=== PATIENT | male | born 1980 | race Caucasian/White ===

== ENCOUNTER 2017-08-17 11:31 | Emergency (ER) | payer MEDICAID, MEDICARE ==
[~2017-08-17] VITALS: Ht 172.7 cm; Wt 60.0 kg
[~2017-08-17 11:31] MED LIST: ALBU8I INH; BENZ100 PO; DEPRESSION MEDS; ZITH250T PO
[2017-08-17 12:01] VITALS: BP 113/76; PULSE 62; RESP 15; TEMP 98.3; O2SAT 99
[2017-08-17 13:00] LABS: AUTOMATED NEUTROPHIL # 2.7 TH/MM3 (1.8-7.7); BASOPHIL % 0.5 % (0.0-2.0); HEMATOCRIT 42.7 % (39.0-51.0); HEMOGLOBIN 14.4 GM/DL (13.0-17.0); LYMPH % 25.1 % (9.0-44.0); MEAN CELL VOLUME 86.8 FL (80.0-100.0); MEAN CORPUSCULAR HEMOGLOBIN 29.3 PG (27.0-34.0); MEAN CORPUSCULAR HGB CONC 33.7 % (32.0-36.0); MEAN PLATELET VOLUME 8.4 FL (7.0-11.0); MONO % 6.6 % (0.0-8.0); MONOCYTE # 0.3 TH/MM3 (0-0.9); NEUT % 66.8 % (16.0-70.0); PLATELET COUNT 170 TH/MM3 (150-450); RED BLOOD COUNT 4.92 MIL/MM3 (4.50-5.90); RED CELL DISTRIBUTION WIDTH 14.1 % (11.6-17.2)
--- NOTE | 2017-08-17 13:01 | PD ---
HPI Chief Complaint: Abdominal Pain Time Seen by Provider: 12:30 Travel History International Travel<30 days: No Contact w/Intl Traveler<30days: No Traveled to known affect area: No History of Present Illness HPI 37-year-old male the presents to the ED for evaluation of left upper quadrant abdominal pain. Patient has had this abdominal pain for the past 2-3 days. Patient is a little bit of a poor historian secondary to a suspect his psychiatric illness as he does take multiple psychiatric medications. He apparently lives in a half[place]way and was brought here for evaluation of this pain that he has had on his left side. He points to his left rib cage. No really to his abdomen. When asked if he injury in any way he does tell me that he was working and he bumped into something. Per patient has been having the pain ever since. He states that the pain is moderate. Nothing makes it better or worse. Denies any shortness of breath or chest pain with it. No nausea or vomiting. No bowel movements or diarrhea issues. Unclear if he is taken anything for it. Does not radiate. Patient pinpoints to the lower rib of the left side as the area of most of the pain. PFSH Past Medical History Asthma: No Autoimmune Disease: No COPD: No Respiratory: No Sleep Apnea: No Social History Alcohol Use: Yes Tobacco Use: Yes Substance Use: No Allergies-Medications (Allergen,Severity, Reaction): Coded Allergies: No Known Allergies (Verified Adverse Reaction, Unknown, 08/17/17) Reported Meds & Prescriptions Reported Meds & Active Scripts Active Diclofenac Sodium DR (Diclofenac Sodium) 75 Mg Tabdr 75 Mg PO BID PRN Reported Prazosin (Prazosin HCl) 2 Mg Cap 2 Mg PO BID Lamotrigine 150 Mg Tab 150 Mg PO DAILY Hydroxyzine Pamoate 50 Mg Cap 50 Mg PO BID Haloperidol 2 Mg Tab 2 Mg PO BID Buspirone (Buspirone HCl) 30 Mg Tab 30 Mg PO TID Benztropine (Benztropine Mesylate) 0.5 Mg Tab 1 Mg PO BID Aripiprazole 5 Mg Tab 5 Mg PO DAILY Review of Systems Except as stated in HPI: all other systems reviewed are Neg Physical Exam Narrative GENERAL: SKIN: Warm and dry. HEAD: Atraumatic. Normocephalic. EYES: Pupils equal and round. No scleral icterus. No injection or drainage. ENT: No nasal bleeding or discharge. Mucous membranes pink and moist. Tongue is midline. No uvula deviation. NECK: Trachea midline. No JVD. CARDIOVASCULAR: Regular rate and rhythm. No murmurs, S3, S4. RESPIRATORY: No accessory muscle use. Clear to auscultation. Breath sounds equal bilaterally. GASTROINTESTINAL: Abdomen soft, non-tender, nondistended. Hepatic and splenic margins not palpable. MUSCULOSKELETAL: Extremities without clubbing, cyanosis, or edema. No obvious deformities. Full range of motion of the upper and lower extremities bilaterally. 2+ pulses bilaterally. Patient has pinpoint tenderness on the left lower rib cage. NEUROLOGICAL: Awake and alert. No obvious cranial nerve deficits. Motor grossly within normal limits. Five out of 5 muscle strength in the arms and legs. Normal speech. PSYCHIATRIC: Appropriate mood and affect; insight and judgment normal. Data Data Last Documented VS Vital Signs Date Time Temp Pulse Resp B/P (MAP) Pulse Ox O2 Delivery O2 Flow Rate FiO2 08/17/17 14:21 16 08/17/17 13:58 98.0 50 114/70 (85) 100 Room Air Orders Orders Complete Blood Count With Diff (08/17/17 12:03) Comprehensive Metabolic Panel (08/17/17 12:03) Urinalysis - C+S If Indicated (08/17/17 12:03) Lipase (08/17/17 12:03) Electrocardiogram (08/17/17 12:32) Ckmb (Isoenzyme) Profile (08/17/17 12:32) Troponin I (08/17/17 12:32) Ribs, Uni (W/Exp Cxr-Min 3vw) (08/17/17 ) Ketorolac Inj (Toradol Inj) (08/17/17 13:30) Labs Laboratory Tests Test 08/17/17 12:48 08/17/17 14:00 White Blood Count 4.0 TH/MM3 Red Blood Count 4.92 MIL/MM3 Hemoglobin 14.4 GM/DL Hematocrit 42.7 % Mean Corpuscular Volume 86.8 FL Mean Corpuscular Hemoglobin 29.3 PG Mean Corpuscular Hemoglobin Concent 33.7 % Red Cell Distribution Width 14.1 % Platelet Count 170 TH/MM3 Mean Platelet Volume 8.4 FL Neutrophils (%) (Auto) 66.8 % Lymphocytes (%) (Auto) 25.1 % Monocytes (%) (Auto) 6.6 % Eosinophils (%) (Auto) 1.0 % Basophils (%) (Auto) 0.5 % Neutrophils # (Auto) 2.7 TH/MM3 Lymphocytes # (Auto) 1.0 TH/MM3 Monocytes # (Auto) 0.3 TH/MM3 Eosinophils # (Auto) 0.0 TH/MM3 Basophils # (Auto) 0.0 TH/MM3 CBC Comment DIFF FINAL Differential Comment Blood Urea Nitrogen 8 MG/DL Creatinine 0.89 MG/DL Random Glucose 84 MG/DL Total Protein 7.0 GM/DL Albumin 3.8 GM/DL Calcium Level 8.8 MG/DL Alkaline Phosphatase 113 U/L Aspartate Amino Transf (AST/SGOT) 12 U/L Alanine Aminotransferase (ALT/SGPT) 17 U/L Total Bilirubin 0.2 MG/DL Sodium Level 142 MEQ/L Potassium Level 3.8 MEQ/L Chloride Level 105 MEQ/L Carbon Dioxide Level 33.6 MEQ/L Anion Gap 3 MEQ/L Estimat Glomerular Filtration Rate 95 ML/MIN Total Creatine Kinase 72 U/L Troponin I LESS THAN 0.02 NG/ML Lipase 92 U/L Urine Color LIGHT-YELLOW Urine Turbidity CLEAR Urine pH 6.0 Urine Specific [place] 1.002 Urine Protein NEG mg/dL Urine Glucose (UA) NEG mg/dL Urine Ketones NEG mg/dL Urine Occult Blood NEG Urine Nitrite NEG Urine Bilirubin NEG Urine Urobilinogen LESS THAN 2.0 MG/DL Urine Leukocyte Esterase NEG Urine WBC LESS THAN 1 /hpf Microscopic Urinalysis Comment CULT NOT INDICATED MDM Medical Decision Making Medical Screen Exam Complete: Yes Emergency Medical Condition: Yes Medical Record Reviewed: Yes Interpretation(s) CBC & BMP Diagram 08/17/17 12:48 Total Protein 7.0, Albumin 3.8, Calcium Level 8.8, Alkaline Phosphatase 113, Aspartate Amino Transf (AST/SGOT) 12 L, Alanine Aminotransferase (ALT/SGPT) 17, Total Bilirubin 0.2 Last Impressions Ribs X-Ray 08/17/17 0000 Signed Impressions: CONCLUSION: xray of ribs showed no sign of acute disease per radiology report troponin and CKMB negative lipase WNL UA negative for blood or signs of infection EKG show sinus bradycardia but no sign of acute ischemia or arrhythmia read by me and attending. Differential Diagnosis Abdominal pain versus chest pain versus rib contusion versus pancreatitis versus gallbladder disease Narrative Course 37-year-old male that presents to the ED for evaluation of left site pain. Patient was properly examined and was found to have signs and symptoms which appeared to be consistent with likely contusion of the ribs. Patient has pinpoint tenderness to the lower ribs on the left side and no bruising or swelling noted. No obvious abdominal pain noted. We will do basic labs and EKG and chest x-ray to rule out any sign of acute disease secondary to patient being a poor historian to rule out more severe illness. Labs and imaging were essentially unremarkable. Patient has reversible pain on the left rib cage. Likely contusion. Patient was given a prescription for the cough and accident. Patient was given Toradol with some relief of discomfort. Follow-up closely with PCP. See ED if worsening symptoms. Diagnosis Primary Impression: Contusion of rib on left side Qualified Codes: S20.212A - Contusion of left front wall of thorax, initial encounter Patient Instructions: General Instructions Additional Instructions: Take medication for pain as prescribed. Follow-up with PCP. See ED worsening symptoms. Ice or warm compresses to the area as needed. Pain will likely last a couple of weeks and then it will get better. Anything gets worse come back. Med/Other Pt SpecificInfo: Prescription(s) given Scripts Diclofenac Sodium (Diclofenac Sodium DR) 75 Mg Tabdr 75 MG PO BID Y for PAIN SCALE 1 TO 10, #14 TAB 0 Refills Prov: Yoko Conde MD 08/17/17 Disposition: 01 DISCHARGE HOME Condition: Stable Vipul Atwood August 17, 2017 13:01
[2017-08-17] MEDS ORDERED: BENZ0.5T PO (13:04)
[2017-08-17] MEDS ORDERED: LAMO150T PO (13:04)
[2017-08-17] MEDS ORDERED: HYDR50CA PO (13:04)
[2017-08-17] MEDS ORDERED: ARIP1TAB11 PO (13:04)
[2017-08-17] MEDS ORDERED: PRAZ2CAP PO (13:04)
[2017-08-17] MEDS ORDERED: HALO2TAB PO (13:04)
[2017-08-17] MEDS ORDERED: BUSP30TA PO (13:04)
[2017-08-17 13:23] LABS: ALBUMIN 3.8 GM/DL (3.4-5.0); AST (GOT) 12 U/L (15-37); BICARBONATE 33.6 MEQ/L (21.0-32.0); BLOOD UREA NITROGEN 8 MG/DL (7-18); CALCIUM 8.8 MG/DL (8.5-10.1); CHLORIDE 105 MEQ/L (98-107); CREATININE 0.89 MG/DL (0.60-1.30); GLOMERULAR FILTRATION RATE 95 ML/MIN (>89); GLUCOSE,RANDOM 84 MG/DL (74-106); SODIUM (NA) 142 MEQ/L (136-145)
[2017-08-17 13:27] LABS: ALKALINE PHOSPHATASE 113 U/L (45-117); ALT (GPT) 17 U/L (12-78); TOTAL BILIRUBIN ADULT 0.2 MG/DL (0.2-1.0); TROPONIN I LESS THAN 0.02 NG/ML (0.02-0.05)
[2017-08-17] MEDS ORDERED: KETOROLAC TROMETHAMINE 30 MG/ML (IVP) VIAL IV PUSH ONE (13:30)
--- NOTE | 2017-08-17 13:37 | RADRPT ---
EXAM DATE: 08/17/2017 1:18 PM EDT AGE/SEX: 37 years / Male INDICATIONS: Left lower lateral rib pain after fall today. CLINICAL DATA: This is the patient's initial encounter. Patient reports that signs and symptoms have been present for 3 days and indicates a pain score of 3/10. MEDICAL/SURGICAL HISTORY: . Anxiety. None. COMPARISON: No prior [place] exams available for comparison. FINDINGS: There is no evidence of displaced fracture. No destructive lesions or areas of periosteal thickening are seen. Expiratory view of the chest is negative for pneumothorax. The mediastinal st ructures are midline. CONCLUSION: No evidence of rib fracture. Electronically signed by: Cem So MD 08/17/2017 1:36 PM EDT
[2017-08-17 13:58] VITALS: BP 114/70; PULSE 50; RESP 15; TEMP 98; O2SAT 100
--- NOTE | 2017-08-17 13:59 | EKG ---
Date Performed: 08/17/2017 Time Performed: 12:48:18 PTAGE: 37 years EKG: SINUS BRADYCARDIA EARLY REPOLARIZATION BORDERLINE ECG No significant change from prior elec trocardiogram. PREVIOUS TRACING : 12/17/2004 08.28 DOCTOR: Pedro Peck Interpretating Date/Time 08/18/2017 15:01:55
[2017-08-17] MEDS ORDERED: DICL75TA PO (14:06)
[2017-08-17 14:21] VITALS: RESP 16
[2017-08-17 14:51] LABS: BILIRUBIN, URINE NEG (NEG); BLOOD, URINE NEG (NEG); GLUCOSE,URINE NEG (NEG); KETONE, URINE NEG (NEG); NITRITE,URINE NEG (NEG); URINE COLOR LIGHT-YELLOW (YELLW/STRAW); URINE LEUKOCYTE ESTERASE NEG (NEG)
[2017-08-17 15:17] VITALS: BP 115/76; TEMP 98.1
== END 2017-08-17 15:19 | disposition home or self-care (01) ==
LOC: NEPC 11:31
DX: S20.212A Contusion of left front wall of thorax, initial encounter (principal); R00.1 Bradycardia, unspecified; X58.XXXA Exposure to other specified factors, initial encounter; Z72.0 Tobacco use
CPT/HCPCS: 71101; 80053; 81001; 82550; 83690; 84484; 85025; 93005; 96374; 99285; J1885

== ENCOUNTER 2017-12-22 14:02 | Observation (INO) ==
[2017-12-22] MEDS ORDERED: Tetanus/Diphtheria Toxoid Adult Vaccine Inj 0.5 ML Vial IM ONE (15:00)
[2017-12-22] MEDS ORDERED: ceFAZolin 2 GM Premix Inj 2 GM/50 ML PIGGYBACK IV.SIG ONE ×2 (15:31→20:59)
--- NOTE | 2017-12-22 15:31 | ED ---
HPI General Chief Complaint: Wound/Laceration Stated Complaint: L Toe Lac Time Seen by Provider: 12/22/17 14:57 Source: patient Mode of arrival: wheelchair Limitations: no limitations History of Present Illness HPI narrative: 37-year-old white male presents emergency department accompanied by the caregiver at the [facility] for evaluation of a left foot injury. The patient was taking out the trash and accidentally knocked the fire extinguisher off the wall which fell on the top of his left foot. The patient sustained a guillotine -type injury to the dorsum of the fifth metatarsal and little toe. Patient sustained an obvious open laceration into the joint. Patient is unable to extend the little toe. There is no other obvious injuries. Patient is not up- to-date with immunizations. Pain is moderate. Worse with walking. No alleviating factor. N.p.o. since noon. Past medical history: Cleft lip, schizophrenia, bipolar, hypertension Surgical history: Cleft lip repair Social history: Positive tobacco. No alcohol. Related Data Home Medications Medication Instructions Recorded Confirmed aripiprazole 5 mg PO AC 12/22/17 12/22/17 benztropine 1 mg PO BID 12/22/17 12/22/17 buspirone 30 mg PO TID 12/22/17 12/22/17 diclofenac sodium 75 mg PO BID PRN 12/22/17 12/22/17 escitalopram oxalate 20 mg PO DAILY 12/22/17 12/22/17 folic acid 1 mg PO DAILY 12/22/17 12/22/17 haloperidol 2 mg PO BID 12/22/17 12/22/17 hydroxyzine HCl 150 mg PO HS 12/22/17 12/22/17 lamotrigine 150 mg PO BID 12/22/17 12/22/17 oseltamivir 75 mg PO BID 12/22/17 12/22/17 prazosin 2 mg PO HS 12/22/17 12/22/17 Allergies Allergy/AdvReac Type Severity Reaction Status Date / Time Fish Containing Products Allergy Rash Verified 12/22/17 15:13 Review of Systems ROS: all other systems reviewed are negative [facility] Medical History Medical History History of bipolar disorder (Acute) Schizophrenia (Acute) Hx of cleft palate (Acute) Surgical History Surgical History Hx of tonsillectomy (Acute) Social History Social History Substance History: No History of Abuse Smoking Status: Former smoker Tobacco Type: Cigarettes How Often Do You Have a Drink Containing Alcohol: Never Recent Travel in [facility] within the Last 8 Weeks: No Recent Out of Country Travel within the Last 8 Weeks: No Exam Narrative Exam Narrative: GENERAL: Well-developed, well-nourished in no apparent distress. Nontoxic appearing. HEAD: Normocephalic, atraumatic. EYES: Pupils equal round and reactive. Extraocular motions intact. No scleral icterus. No injection or drainage. ENT: Nose clear. Throat without erythema, tonsillar hypertrophy or exudate. Uvula midline. Airway patent. NECK: Trachea midline. Supple, nontender, moves head freely. No central bony tenderness or spasm. CARDIOVASCULAR: Regular rate and rhythm without murmurs, gallops, or rubs. RESPIRATORY: Clear to auscultation. Breath sounds equal bilaterally. No wheezes , rales, or rhonchi. GASTROINTESTINAL: Abdomen soft, non-tender, nondistended. No hepato-splenomegaly , or palpable masses. No guarding. EXTREMITIES: No clubbing, cyanosis, or edema. Patient has a large laceration over the dorsum of the left foot across the lateral forefoot down into the fourth toe. Patient has a open fracture/open joint laceration through the extensor tendon of the little toe. Patient is able to flex his toe but unable to extend. Patient has decreased sensation in the little toe. Patient does have intact cap refill.. BACK: Nontender without deformity. No flank tenderness. NEUROLOGICAL: Awake, alert and oriented x 3 .Cranial nerves grossly intact. Motor and sensory grossly within normal limits. Normal speech. Procedures Laceration Laceration 1: Site: other (Foot) Side (If applicable): left Size (cm): 6 Description: linear Depth: involves tendon Anesthetic used: lidocaine 1% Anesthesia technique:: local infiltration Amount (mL): 7 Pre-repair:: wound explored and irrigated extensively Course Initial Documented Vital Signs Temperature 97.3 F L 12/22/17 14:30 Pulse Rate 78 12/22/17 14:30 Respiratory Rate 16 12/22/17 14:30 Blood Pressure 109/66 12/22/17 14:30 Pulse Oximetry 97 12/22/17 14:30 Last Documented Vital Signs Temperature 97.3 F L 12/22/17 14:30 Pulse Rate 78 12/22/17 14:30 Respiratory Rate 16 12/22/17 14:30 Blood Pressure 109/66 12/22/17 14:30 Pulse Oximetry 97 12/22/17 14:30 Medical Decision Making ROBERTO CARLOS Attestation ROBERTO CARLOS supervised visit: Yes Attestation: I, Dr. Watkins, have reviewed the advance practice practitioner's documentation and am in agreement, met with the patient face to face, made the diagnosis, and the medical decision making was done by me. See his note for further details. Briefly this is a 37-year-old male who presents by private vehicle with his front desk coordinator from his [employer] after sustaining a wound to his left foot after a fire extinguisher fell from the counter onto his foot. This occurred at around 1:30 PM this afternoon. Patient was initially evaluated by the ROBERTO CARLOS who anesthetized the wound and thoroughly evaluated the wound under local anesthesia. He noted that there was complete laceration of the extensor tendon of the left fifth toe , and the laceration is as deep as the bone. X-ray of the left foot shows a comminuted fracture of the base of the left fifth phalanx. He was noted to have somewhat diminished sensation in the left fifth toe, however has normal capillary refill. He is unable to extend his toe on exam. He has no other injuries. He was given Ancef by the ROBERTO CARLOS. I discussed the case with on-call slasher runner Dr. Guillermo who plans to take the patient to the OR later this evening for debridement, extensor tendon repair, and laceration repair. Plan was discussed with both the patient and the patient's caregiver who is at the bedside. Case discussed with hospitalist Dr. Delgado who will admit the patient to his service. MDM Narrative Medical decision making narrative: IV access is obtained. Patient is given 2 g of Ancef IV. Patient's foot has been anesthetized, irrigated copiously. X-ray of the left foot. Patient has an open joint laceration fracture of the left foot. Report has been given to Dr. Watkins. Medical Screen Exam Complete: Yes Emergency Medical Condition: Yes Differential Diagnosis Differential Diagnosis: MDM: High Differential diagnoses: Fracture, sprain, strain, dislocation, contusion, neurovascular injury Lab Data Result diagrams: 12/22/17 16:15 12/22/17 16:15 Lab Results 12/22/17 12/22/17 12/22/17 Range/Units 16:15 16:15 16:15 WBC 6.6 (4.0-11.0) th/mm3 RBC 5.16 (4.50-5.90) mil/mm3 Hgb 14.9 (13.0-17.0) gm/dL Hct 45.5 (39.0-51.0) % MCV 88.2 (80.0-100.0) fL MCH 28.9 (27.0-34.0) pg MCHC 32.8 (32.0-36.0) % RDW 14.1 (11.6-17.2) % Plt Count 167 (150-450) th/mm3 MPV 9.1 (7.0-11.0) fL Neut % (Auto) 82.5 H (16.0-70.0) % Lymph % (Auto) 11.1 (9.0-44.0) % [place] % (Auto) 5.7 (0.0-8.0) % Eos % (Auto) 0.5 (0.0-4.0) % Baso % (Auto) 0.2 (0.0-2.0) % Neut # (Auto) 5.5 (1.8-7.7) th/mm3 Lymph # (Auto) 0.7 L (1.0-4.8) th/mm3 [place] # (Auto) 0.4 (0.0-0.9) th/mm3 Eos # (Auto) 0.0 (0.0-0.4) th/mm3 Baso # (Auto) 0.0 (0.0-0.2) th/mm3 WBC Differential . Differential Comment Auto diff final PT 11.8 H (9.8-11.6) sec INR 1.2 Ratio APTT 30.2 H (24.3-30.1) sec Sodium 141 (136-145) meq/L Potassium 4.2 (3.5-5.1) meq/L Chloride 103 (98-107) meq/L Carbon Dioxide 31.1 (21.0-32.0) meq/L Anion Gap 7 (5-15) meq/L BUN 7 (7-18) mg/dL Creatinine 0.85 (0.60-1.30) mg/dL Estimated GFR Greater than 89 (>89) mL/min Random Glucose 101 (74-106) mg/dL Calcium 9.1 (8.5-10.1) mg/dL Imaging Data Radiologist's impression: Foot X-Ray 12/22/17 15:00 CONCLUSION: 1. Comminuted fracture of the base of the fifth phalanx. Discharge Plan Discharge Disposition Patient Disposition: 30 Still Patient Discharge Condition Condition: Stable Discharge Details Diagnosis: Open fracture of fifth toe of left foot Physicians Team ED Provider: Isaac Watkins ED Midlevel Provider: Gilmar Campbell Primary Care Provider: UNKNOWN, Attending Provider: Mario Delgado Status ED Status: Admitted Observation Patient
[2017-12-22] MEDS ORDERED: Sod Chloride 0.9% Inj 1,000 ML IV.CONT SCH (15:45)
--- NOTE | 2017-12-22 15:51 | XR ---
EXAM DATE: 12/22/2017 3:00 PM EDT AGE/SEX: 37 years / Male INDICATIONS: Trauma. Patient states he dropped a fire extinguisher on his Left foot today. CLINICAL DATA: This is the patient's initial encounter. Patient reports that signs and symptoms have been present for 1 day and indicates a pain score of 5/10. MEDICAL/SURGICAL HISTORY: None. None. COMPARISON: No prior exams available for comparison. FINDINGS: Comminuted fractures of the base of the fifth phalanx. Remaining osseous structures appear intact. Th ere is soft tissue prominence overlying the lateral forefoot region. No radiopaque foreign bodies. CONCLUSION: 1. Comminuted fracture of the base of the fifth phalanx. Electronically signed by: Sam Robin MD 12/22/2017 3:50 PM EDT
[2017-12-22 16:27] LABS: Baso % (Auto) 0.2 % (0.0-2.0); Eos % (Auto) 0.5 % (0.0-4.0); Hematocrit 45.5 % (39.0-51.0); Hemoglobin 14.9 gm/dL (13.0-17.0); Lymph # (Auto) 0.7 th/mm3 (1.0-4.8); Lymph % (Auto) 11.1 % (9.0-44.0); Mean Corpuscular HGB Conc 32.8 % (32.0-36.0); Mean Corpuscular Hemoglobin 28.9 pg (27.0-34.0); Mean Corpuscular Volume 88.2 fL (80.0-100.0); Mean Platelet Volume 9.1 fL (7.0-11.0); Mono # (Auto) 0.4 th/mm3 (0.0-0.9); Mono % (Auto) 5.7 % (0.0-8.0); Neut # (Auto) 5.5 th/mm3 (1.8-7.7); Neut % (Auto) 82.5 % (16.0-70.0); Platelet Count 167 th/mm3 (150-450); Red Blood Count 5.16 mil/mm3 (4.50-5.90); Red Cell Distribution Width 14.1 % (11.6-17.2); White Blood Count 6.6 th/mm3 (4.0-11.0)
[2017-12-22 16:35] LABS: Activated Partial Thrombo Time 30.2 sec (24.3-30.1); INR 1.2 Ratio; Prothrombin Time 11.8 sec (9.8-11.6)
[2017-12-22 16:50] LABS: Anion Gap 7 meq/L (5-15); Blood Urea Nitrogen 7 mg/dL (7-18); Calcium 9.1 mg/dL (8.5-10.1); Carbon Dioxide 31.1 meq/L (21.0-32.0); Chloride 103 meq/L (98-107); Glomerular Filtration Rate Greater Than 89 mL/min (>89); Glucose,Random 101 mg/dL (74-106); Potassium 4.2 meq/L (3.5-5.1); Sodium 141 meq/L (136-145)
[2017-12-22] MEDS ORDERED: LORazepam 0.5 MG Tablet PO PRN (17:10)
[2017-12-22] MEDS ORDERED: Acetaminophen 325 MG Tablet PO PRN (17:11)
--- NOTE | 2017-12-22 17:16 | P.HPIM ---
History of Present Illness Primary Care Physician: UNKNOWN Chief Complaint: Pain History of Present Illness: The patient is a 37-year-old male with a past medical history of cleft palate status post repair and bipolar disorder who is presenting to the hospital after a foot injury. The patient said that a fire extinguisher fell on his left foot. He had significant bleeding from the area and was brought to the hospital within 20 minutes. The patient stated that it hurt quite a bit at the time but since having numbing medication he is currently comfortable. He denies any other associated symptoms. He is aware that he will be having surgical repair later on. He is requesting anxiety medication. He says that he would like a nicotine patch. Review of Systems All other systems reviewed negative except as stated in HPI [facility] - History History Provided By: Patient - Medical History Medical History: Medical History (Last Reviewed 12/22/17 @ 17:21 by Mario Delgado DO) History of bipolar disorder Schizophrenia Hx of cleft palate - Surgical History Surgical History: Surgical History (Last Updated 12/22/17 @ 17:22 by Mario Delgado DO) Hx of tonsillectomy - Tobacco History Smoking Status: Former smoker Tobacco Type: Cigarettes - Alcohol History How Often Do You Have a Drink Containing Alcohol: Never - Substance Use History Substance History: No History of Abuse - Travel History Recent Travel in the [place] Within the Last 8 Weeks: No Recent Travel Out of the Country Within the Last 8 Weeks: No - Immunization History Tetanus Immunization: Unsure Hx Influenza Vaccine This Season: No Medications and Allergies Active Medications: Active Medications Acetaminophen (Tylenol) 650 mg PO Q4H PRN PRN Reason: Temp > 100.4 Aripiprazole (Abilify) 5 mg PO AC [facility]AD Benztropine Mesylate (Cogentin) 1 mg PO BID [facility] Escitalopram Oxalate (Lexapro) 20 mg PO DAILY SHARAD Folic Acid (Folic Acid) 1 mg PO DAILY SH[facility]AD Haloperidol (Haldol) 2 mg PO BID [facility]AD Hydroxyzine HCl (Atarax) 150 mg PO HS [facility]AD Sodium Chloride (Ns Inj) 1,000 mls @ 100 mls/hr IV.CONT .Q10H SHARAD Lorazepam (Ativan) 0.5 mg PO Q8H PRN PRN Reason: SEVERE ANXIETY OR AGITATION Non-Formulary Medication (Buspirone [Buspirone]) 30 mg PO TID SHARAD Non-Formulary Medication (Lamotrigine [Lamotrigine]) 150 mg PO BID [facility] Ondansetron HCl (Zofran Inj) 4 mg IV.PUSH Q6H PRN PRN Reason: NAUSEA OR VOMITING Oxycodone/Acetaminophen (Percocet 5/325 Mg) 1 tab PO Q4H PRN PRN Reason: pain 3-10 Prazosin HCl (Minipress) 2 mg PO HS [facility] Senna/Docusate Sodium (Jessica-Colace) 1 tab PO BID [facility] Sodium Chloride (Ns Flush) 2 ml IV.FLUSH PRN PRN PRN Reason: FLUSH AFTER USING IV ACCESS Allergies Allergy/AdvReac Type Severity Reaction Status Date / Time Fish Containing Products Allergy Rash Verified 12/22/17 15:13 Home Medications Medication Instructions Recorded Confirmed Type aripiprazole 5 mg PO AC 12/22/17 12/22/17 History benztropine 1 mg PO BID 12/22/17 12/22/17 History buspirone 30 mg PO TID 12/22/17 12/22/17 History diclofenac sodium 75 mg PO BID PRN 12/22/17 12/22/17 History escitalopram oxalate 20 mg PO DAILY 12/22/17 12/22/17 History folic acid 1 mg PO DAILY 12/22/17 12/22/17 History haloperidol 2 mg PO BID 12/22/17 12/22/17 History hydroxyzine HCl 150 mg PO HS 12/22/17 12/22/17 History lamotrigine 150 mg PO BID 12/22/17 12/22/17 History oseltamivir 75 mg PO BID 12/22/17 12/22/17 History prazosin 2 mg PO HS 12/22/17 12/22/17 History Exam Vital signs: Vital Signs 12/22/17 14:30 Temperature 97.3 F L Pulse Rate 78 Respiratory Rate 16 Blood Pressure 109/66 Pulse Oximetry 97 Intake & Output 12/21/17 12/22/17 12/22/17 18:59 06:59 18:59 Weight 67.132 kg Narrative: GENERAL: Well-developed, well-nourished in no apparent distress. HEAD: Normocephalic, atraumatic. EYES: Pupils equal round and reactive. Extraocular motions intact. No scleral icterus. No injection or drainage. ENT: Nose clear. Throat without erythema, tonsillar hypertrophy or exudate. Uvula midline. Airway patent. NECK: Trachea midline. Supple, nontender, moves head freely. No central bony tenderness or spasm. CARDIOVASCULAR: Regular rate and rhythm without murmurs, gallops, or rubs. RESPIRATORY: Mild wheezing. GASTROINTESTINAL: Abdomen soft, non-tender, nondistended. No hepato-splenomegaly , or palpable masses. No guarding. EXTREMITIES: No clubbing, cyanosis, or edema. Patient has a large laceration over the dorsum of the left foot across the lateral forefoot down into the fourth toe. Patient has a open fracture/open joint laceration through the extensor tendon of the little toe. Patient is able to flex his toe but unable to extend. Patient has decreased sensation in the little toe. Patient does have intact cap refill. BACK: Nontender without deformity. No flank tenderness. NEUROLOGICAL: Awake, alert and oriented x 3 .Cranial nerves grossly intact. Motor and sensory grossly within normal limits. Normal speech. Results - Labs CBC & Chem 7: 12/22/17 16:15 12/22/17 16:15 Labs: Short CBC 12/22/17 Range/Units 16:15 WBC 6.6 (4.0-11.0) th/mm3 Hgb 14.9 (13.0-17.0) gm/dL Hct 45.5 (39.0-51.0) % Plt Count 167 (150-450) th/mm3 BMP 12/22/17 16:15 Sodium 141 Potassium 4.2 Chloride 103 Carbon Dioxide 31.1 BUN 7 Creatinine 0.85 Calcium 9.1 - Imaging Impressions Foot X-Ray 12/22/17 15:00 CONCLUSION: 1. Comminuted fracture of the base of the fifth phalanx. Caprini VTE Risk Assessment Caprini VTE Risk Assessment: Moderate/High Risk (score >= 2) Caprini Risk Assessment Model: Point Value = 1 Point Value = 2 Point Value = 3 Point Value = 5 Age 41-60 Minor surgery BMI > 25 kg/m2 Swollen legs Varicose veins or History of unexplained or recurrent spontaneous Oral contraceptives or hormone replacement Sepsis (< 1 month) Serious lung disease, including pneumonia (< 1 month) Abnormal pulmonary function Acute myocardial infarction Congestive heart failure (< 1 month) History of inflammatory bowel disease Medical patient at bed rest Age 61-74 Arthroscopic surgery Major open surgery (> 45 min) Laparoscopic surgery (> 45 min) Malignancy Confined to bed (> 72 hours) Immobilizing plaster cast Central venous access Age >= 75 History of VTE Family history of VTE Factor V Leiden Prothrombin [id number] Lupus anticoagulant Anticardiolipin antibodies Elevated serum homocysteine Heparin-induced thrombocytopenia Other congenital or acquired thrombophilia Stroke (< 1 month) Elective arthroplasty Hip, pelvis, or leg fracture Acute spinal cord injury (< 1 month) Prophylaxis Regimen: Total Risk Factor Score Risk Level Prophylaxis Regimen 0-1 Low Early ambulation 2 Moderate Order ONE of the following: *Sequential Compression Device (SCD) *Heparin 5000 units SQ BID 3-4 Higher Order ONE of the following medications: *Heparin 5000 units SQ TID *Enoxaparin/Lovenox 40 mg SQ daily (WT < 150 kg, CrCl > 30 mL/min) *Enoxaparin/Lovenox 30 mg SQ daily (WT < 150 kg, CrCl > 10-29 mL/min) *Enoxaparin/Lovenox 30 mg SQ BID (WT < 150 kg, CrCl > 30 mL/min) AND/OR *Sequential Compression Device (SCD) 5 or more Highest Order ONE of the following medications: *Heparin 5000 units SQ TID (Preferred with Epidurals) *Enoxaparin/Lovenox 40 mg SQ daily (WT < 150 kg, CrCl > 30 mL/min) *Enoxaparin/Lovenox 30 mg SQ daily (WT < 150 kg, CrCl > 10-29 mL/min) *Enoxaparin/Lovenox 30 mg SQ BID (WT < 150 kg, CrCl > 30 mL/min) AND *Sequential Compression Device (SCD) Assessment and Plan - Plan Toe fracture The pt had a fire extinguisher fall on his left foot. Imaging: Comminuted fracture of the base of the fifth phalanx. -podiatry to take pt to OR this evening. -wound care and weightbearing per podiatry. -pain control with a bowel regimen. -PT in AM. Nicotine dependance The pt smokes two packs a day. -cessation instruction. -nicotine patch. Bipolar disorder/ Schizophrenia The pt is on multiple psych meds. -resume home regimen. -Ativan as needed. PPx: Mechanical contraindicated in setting of foot injury, hold chemical s/t surgery
[2017-12-22] MEDS ORDERED: Bupivacaine PF 0.5% Inj 30 ML Vial ONE (18:22)
[2017-12-22] MEDS ORDERED: Lidocaine PF 1% Inj 5 ML Syringe OTHER ONE (20:30)
--- NOTE | 2017-12-22 20:36 | P.CONPOD ---
History of Present Illness Service: Podiatry Consult date: 12/22/17 Reason for Consult: left foot open fracture/laceration Primary Care Provider: UNKNOWN Chief Complaint: Pain History of Present Illness: Patient dropped a fire extinguisher on his left foot earlier today at his assisted living facility. he comes to ED with bleeding wound and exposed bone Review of Systems All other systems reviewed negative except as stated in HPI [facility] - History History Provided By: Patient - Medical History Medical History: Medical History (Last Reviewed 12/22/17 @ 17:21 by Mario Delgado DO) History of bipolar disorder Schizophrenia Hx of cleft palate - Surgical History Surgical History: Surgical History (Last Updated 12/22/17 @ 17:22 by Mario Delgado DO) Hx of tonsillectomy - Tobacco History Smoking Status: Former smoker Tobacco Type: Cigarettes - Alcohol History How Often Do You Have a Drink Containing Alcohol: Never - Substance Use History Substance History: No History of Abuse - Travel History Recent Travel in the [place] Within the Last 8 Weeks: No Recent Travel Out of the Country Within the Last 8 Weeks: No - Immunization History Tetanus Immunization: Unsure Hx Influenza Vaccine This Season: No Medications and Allergies Active Medications: Active Medications Acetaminophen (Tylenol) 650 mg PO Q4H PRN PRN Reason: Temp > 100.4 Aripiprazole (Abilify) 5 mg PO AC [facility] Benztropine Mesylate (Cogentin) 1 mg PO BID [facility] Buspirone HCl (Buspar) 30 mg PO TID [facility] Escitalopram Oxalate (Lexapro) 20 mg PO DAILY [facility] Folic Acid (Folic Acid) 1 mg PO DAILY [facility] Haloperidol (Haldol) 2 mg PO BID [facility] Hydroxyzine HCl (Atarax) 150 mg PO HS [facility] Sodium Chloride (Ns Inj) 1,000 mls @ 100 mls/hr IV.CONT .Q10H [facility] Lamotrigine (Lamictal) 150 mg PO BID [facility] Lorazepam (Ativan) 0.5 mg PO Q8H PRN PRN Reason: SEVERE ANXIETY OR AGITATION Nicotine (Habitrol 21 Mg Patch.24 Hr) 1 patch T-DERMAL Q24H [facility] Oxycodone/Acetaminophen (Percocet 5/325 Mg) 1 tab PO Q4H PRN PRN Reason: pain 3-10 Patch Removal (Remove Old Patch) 1 each T-DERMAL Q24H [facility]AD Prazosin HCl (Minipress) 2 mg PO HS [facility] Senna/Docusate Sodium (Jessica-Colace) 1 tab PO BID [facility] Sodium Chloride (Ns Flush) 2 ml IV.FLUSH PRN PRN PRN Reason: FLUSH AFTER USING IV ACCESS Allergies Allergy/AdvReac Type Severity Reaction Status Date / Time Fish Containing Products Allergy Rash Verified 12/22/17 15:13 Home Medications Medication Instructions Recorded Confirmed Type aripiprazole 5 mg PO AC 12/22/17 12/22/17 History benztropine 1 mg PO BID 12/22/17 12/22/17 History buspirone 30 mg PO TID 12/22/17 12/22/17 History diclofenac sodium 75 mg PO BID PRN 12/22/17 12/22/17 History escitalopram oxalate 20 mg PO DAILY 12/22/17 12/22/17 History folic acid 1 mg PO DAILY 12/22/17 12/22/17 History haloperidol 2 mg PO BID 12/22/17 12/22/17 History hydroxyzine HCl 150 mg PO HS 12/22/17 12/22/17 History lamotrigine 150 mg PO BID 12/22/17 12/22/17 History oseltamivir 75 mg PO BID 12/22/17 12/22/17 History prazosin 2 mg PO HS 12/22/17 12/22/17 History Physical Exam Vital signs: Vital Signs 12/22/17 14:30 12/22/17 17:32 Temperature 97.3 F L Pulse Rate 78 53 L Respiratory Rate 16 Blood Pressure 109/66 117/73 Pulse Oximetry 97 Intake & Output 12/22/17 12/22/17 12/23/17 06:59 18:59 06:59 Intake Total 1050 / 1050 Balance 1050 / 1050 Weight 67.132 kg Intake: IV 1050 / 1050 NS Inj 1,000 ML @ 1000 mls/hr 1000 / 1000 IV.CONT .Q1H SHARAD Rx#:[id number] Ancef 2 GM Premix Inj 2 gm In 50 / 50 50 ml @ 100 mls/hr IV.SIG ONCE ONE Rx#:[id number] Narrative: Left foot with bleeding laceration to dorsolateral left foot extending from lateral 5th MTP joint to between 4th/5th toes. Probes to bone of comminuted fracture base of 5th proximal phalanx. No debris noted. Results - Labs CBC & Chem 7: 12/22/17 16:15 12/22/17 16:15 Laboratory Results - last 24 hr 12/22/17 12/22/17 12/22/17 16:15 16:15 16:15 WBC 6.6 RBC 5.16 Hgb 14.9 Hct 45.5 MCV 88.2 MCH 28.9 MCHC 32.8 RDW 14.1 Plt Count 167 MPV 9.1 Neut % (Auto) 82.5 H Lymph % (Auto) 11.1 [place] % (Auto) 5.7 Eos % (Auto) 0.5 Baso % (Auto) 0.2 Neut # (Auto) 5.5 Lymph # (Auto) 0.7 L [place] # (Auto) 0.4 Eos # (Auto) 0.0 Baso # (Auto) 0.0 WBC Differential . Differential Comment Auto diff final PT 11.8 H INR 1.2 APTT 30.2 H Sodium 141 Potassium 4.2 Chloride 103 Carbon Dioxide 31.1 Anion Gap 7 BUN 7 Creatinine 0.85 Estimated GFR Greater than 89 Random Glucose 101 Calcium 9.1 - Imaging Impressions Foot X-Ray 12/22/17 15:00 CONCLUSION: 1. Comminuted fracture of the base of the fifth phalanx. Assessment and Plan - Assessment (1) Laceration of left foot with tendon involvement Code(s): S91.312A - Laceration without foreign body, left foot, initial encounter; S96.922A - Laceration of unspecified muscle and tendon at ankle and foot level, left foot, initial encounter Status: Acute (2) Open fracture of fifth toe of left foot Code(s): S92.502B - Displaced unspecified fracture of left lesser toe(s), initial encounter for open fracture Status: Acute - Plan to OR for I&D left foot open fracture, repair of tendon and repair of laceration. NPO (2) Open fracture of fifth toe of left foot Qualifiers: Encounter type: initial encounter Qualified Code(s): S92.502B - Displaced unspecified fracture of left lesser toe(s), initial encounter for open fracture
[2017-12-22] MEDS ORDERED: fentaNYL Citrate Inj 100 MCG/2 ML Ampul ONE (20:46)
[2017-12-22] MEDS ORDERED: Sugammadex Inj 200 MG/2 ML Vial IV.PUSH ONE (21:04)
--- NOTE | 2017-12-22 21:29 | P.BOP ---
- Preoperative Diagnosis (1) Open fracture of fifth toe of left foot (2) Laceration of left foot with tendon involvement - Postoperative Diagnosis (1) Open fracture of fifth toe of left foot (2) Laceration of left foot with tendon involvement Date of procedure: 12/22/17 Procedure: 1. Irrigation and debridement of open fracture left 5th toe 2. Repair of tendon laceration left 5th toe 3. Repair of complex laceration involving tendon left foot Left foot laceration irrigated with 3L normal saline, followed by examination of wound. Severe comminution of base of 5th proximal phalanx with fragmentation and crumbled at level of joint. Bone 60% of bone came out with irrigation, so deemed necessary to remove remainder of base of proximal phalanx. Dorsal joint capsule and tendon repaired with 3-0 vicryl, followed by skin closure with 3-0 nylon. No gross debris noted. 2g Ancef IV preop No tourniquet utilized. Disposition: Clear for discharge from podiatry after 24 hours IV ancef. Please discharge patient on 7 days Keflex 500mg tid. Nonweightbearing left foot in splint. No further treatment planned. Keep dressing clean, dry, intact. Follow up in clinic 1 week for dressing change. Anesthesia: GETA, local (10mL 0.5% marcaine plain) Surgeon: Gemma Guillermo DPM Chest Painting Leader: staff Estimated blood loss (mL): 20 Pathology: none sent Condition: stable Disposition: PACU
--- NOTE | 2017-12-22 22:42 | XR ---
EXAM DATE: 12/22/2017 12:00 AM EDT AGE/SEX: 37 years / Male INDICATIONS: Post op left foot irrigation and debridement with tendon repair CLINICAL DATA: This is the patient's initial encounter. Patient reports that signs and symptoms have been present for 1 day and indicates a pain score of Nonresponsive. MEDICAL/SURGICAL HISTORY: None. None. COMPARISON: [facility] [place], FOOT COMPLETE LEFT 3V, 12/22/2017. . FINDINGS: Examination is performed in a fiberglass splint. There has been surgical removal of several of the urvashi ny fragments about the proximal metaphysis of the fifth digit proximal phalanx. 1 fragment remains. T he alignment across the fifth MTP joint is near-anatomic. CONCLUSION: 1 bony fragment remains at the fifth MTP surgical site. Electronically signed by: Fabian Buck MD 12/22/2017 10:41 PM EDT
[2017-12-22] MEDS: Sod Chloride 0.9% Inj 1,000 ML IV.CONT SCH (23:16)
[2017-12-22] MEDS: Senna/Docusate Sodium 8.6/50 MG Tablet PO SCH (23:16)
[2017-12-22] MEDS: lamoTRIgine 100 MG Tablet PO SCH (23:24)
[2017-12-23] MEDS ORDERED: ceFAZolin 2 GM Premix Inj 2 GM/100 ML BAG IV.SIG SCH (06:00)
[2017-12-23 07:01] LABS: Baso % (Auto) 0.1 % (0.0-2.0); Hematocrit 41.5 % (39.0-51.0); Hemoglobin 13.8 gm/dL (13.0-17.0); Lymph # (Auto) 0.3 th/mm3 (1.0-4.8); Lymph % (Auto) 5.4 % (9.0-44.0); Mean Corpuscular HGB Conc 33.2 % (32.0-36.0); Mean Corpuscular Hemoglobin 29.1 pg (27.0-34.0); Mean Corpuscular Volume 87.4 fL (80.0-100.0); Mean Platelet Volume 9.4 fL (7.0-11.0); Mono # (Auto) 0.1 th/mm3 (0.0-0.9); Mono % (Auto) 2.2 % (0.0-8.0); Neut # (Auto) 5.8 th/mm3 (1.8-7.7); Neut % (Auto) 92.3 % (16.0-70.0); Platelet Count 152 th/mm3 (150-450); Red Blood Count 4.75 mil/mm3 (4.50-5.90); White Blood Count 6.3 th/mm3 (4.0-11.0)
[2017-12-23 07:10] LABS: Albumin 3.3 g/dL (3.4-5.0); Anion Gap 4 meq/L (5-15); Aspartate Aminotransferase 10 U/L (15-37); Blood Urea Nitrogen 7 mg/dL (7-18); Calcium 8.5 mg/dL (8.5-10.1); Carbon Dioxide 31.4 meq/L (21.0-32.0); Chloride 105 meq/L (98-107); Glomerular Filtration Rate Greater Than 89 mL/min (>89); Glucose,Random 120 mg/dL (74-106); Potassium 4.2 meq/L (3.5-5.1); Sodium 140 meq/L (136-145)
[2017-12-23 07:13] LABS: Alanine Aminotransferase 17 U/L (12-78); Alkaline Phosphatase 110 U/L (45-117); Total Protein 6.6 g/dL (6.4-8.2)
[2017-12-23] MEDS: Haloperidol 1 MG Tablet PO SCH ×2 (09:44→22:42)
[2017-12-23] MEDS: Senna/Docusate Sodium 8.6/50 MG Tablet PO SCH ×2 (09:44→20:02)
[2017-12-23] MEDS: lamoTRIgine 100 MG Tablet PO SCH ×2 (09:45→20:02)
[2017-12-23] MEDS: Folic Acid 1 MG Tablet PO SCH (09:45)
[2017-12-23] MEDS: Sod Chloride 0.9% Inj 1,000 ML IV.CONT SCH ×2 (09:46→16:31)
[2017-12-23] MEDS: ARIPiprazole 5 MG Tablet PO SCH ×3 (09:46→17:00)
--- NOTE | 2017-12-23 13:58 | P.PNIM ---
Subjective Interval history: The patient is a 37-year-old male with a past medical history of cleft palate status post repair and bipolar disorder who is presenting to the hospital after a foot injury. The patient said that a fire extinguisher fell on his left foot. He had significant bleeding from the area and was brought to the hospital within 20 minutes. The patient stated that it hurt quite a bit at the time but since having numbing medication he is currently comfortable. He denies any other associated symptoms. He is aware that he will be having surgical repair later on. He is requesting anxiety medication. He says that he would like a nicotine patch. 12-23 sp surgery on 12-22 1. Irrigation and debridement of open fracture left 5th toe 2. Repair of tendon laceration left 5th toe 3. Repair of complex laceration involving tendon left foot CONTINUE IV ANTIBIOTICS DC TO [facility] TOMORROW WITH [facility] WILL GET AM LABS [facility] RN AND PT AND RN AM [facility] RN AND PT Physical Exam Vital signs: Vital Signs 12/22/17 14:30 12/22/17 17:32 12/22/17 21:35 Temperature 97.3 F L 98.3 F Pulse Rate 78 53 L 98 H Respiratory Rate 16 24 Blood Pressure 109/66 117/73 121/70 Pulse Oximetry 97 95 12/22/17 22:00 12/22/17 22:15 12/22/17 22:30 Temperature 98.0 F Pulse Rate 94 H 86 79 Respiratory Rate 18 20 20 Blood Pressure 116/58 L 113/56 L 116/59 L Pulse Oximetry 95 96 97 12/22/17 23:12 12/22/17 23:46 12/23/17 02:52 Temperature 97.6 F Pulse Rate 76 Respiratory Rate 20 18 17 Blood Pressure 122/71 Pulse Oximetry 93 L 12/23/17 04:00 12/23/17 08:00 12/23/17 12:00 Temperature 97.2 F L 97.3 F L 98 F Pulse Rate 63 57 L 54 L Respiratory Rate 18 16 17 Blood Pressure 109/68 111/58 L 112/69 Pulse Oximetry 98 97 97 Intake & Output 12/22/17 12/23/17 12/23/17 18:59 06:59 18:59 Intake Total 1050 / 1050 730 / 730 1000 / 1000 Output Total 560 / 560 Balance 1050 / 1050 170 / 170 1000 / 1000 Weight 67.132 kg Intake: IV 1050 / 1050 50 / 50 1000 / 1000 NS Inj 1,000 ML @ 100 mls/hr IV 1000 / 1000 1000 / 1000 .CONT .Q10H SHARAD Rx#:[id number] Ancef 2 GM Premix Inj 2 gm In 50 / 50 50 / 50 50 ml @ 100 mls/hr IV.SIG ONCE ONE Rx#:[id number] Oral 480 / 480 Anesthesia Amount 200 / 200 Output: Urine 550 / 550 Estimated Blood Loss Other: # Voids 2 Narrative: GENERAL: Well-developed, well-nourished in no apparent distress. HEAD: Normocephalic, atraumatic. EYES: Pupils equal round and reactive. Extraocular motions intact. No scleral icterus. No injection or drainage. ENT: Nose clear. Throat without erythema, tonsillar hypertrophy or exudate. Uvula midline. Airway patent. NECK: Trachea midline. Supple, nontender, moves head freely. No central bony tenderness or spasm. CARDIOVASCULAR: Regular rate and rhythm without murmurs, gallops, or rubs. RESPIRATORY: Mild wheezing. GASTROINTESTINAL: Abdomen soft, non-tender, nondistended. No hepato-splenomegaly , or palpable masses. No guarding. EXTREMITIES: No clubbing, cyanosis, or edema. Patient has a large laceration over the dorsum of the left foot across the lateral forefoot down into the fourth toe. Patient has a open fracture/open joint laceration through the extensor tendon of the little toe. Patient is able to flex his toe but unable to extend. Patient has decreased sensation in the little toe. Patient does have intact cap refill.--LEFT FOOT IS NOW DRESSED POST SURGERY BACK: Nontender without deformity. No flank tenderness. NEUROLOGICAL: Awake, alert and oriented x 3 .Cranial nerves grossly intact. Motor and sensory grossly within normal limits. Normal speech. Results - Labs CBC & Chem 7: 12/23/17 05:52 12/23/17 05:52 Laboratory Results - last 24 hr 12/22/17 12/22/17 12/22/17 16:15 16:15 16:15 WBC 6.6 RBC 5.16 Hgb 14.9 Hct 45.5 MCV 88.2 MCH 28.9 MCHC 32.8 RDW 14.1 Plt Count 167 MPV 9.1 Neut % (Auto) 82.5 H Lymph % (Auto) 11.1 [place] % (Auto) 5.7 Eos % (Auto) 0.5 Baso % (Auto) 0.2 Neut # (Auto) 5.5 Lymph # (Auto) 0.7 L [place] # (Auto) 0.4 Eos # (Auto) 0.0 Baso # (Auto) 0.0 WBC Differential . Differential Comment Auto diff final PT 11.8 H INR 1.2 APTT 30.2 H Sodium 141 Potassium 4.2 Chloride 103 Carbon Dioxide 31.1 Anion Gap 7 BUN 7 Creatinine 0.85 Estimated GFR Greater than 89 Random Glucose 101 Calcium 9.1 Total Bilirubin AST ALT Alkaline Phosphatase Total Protein Albumin 12/23/17 12/23/17 05:52 05:52 WBC 6.3 RBC 4.75 Hgb 13.8 Hct 41.5 MCV 87.4 MCH 29.1 MCHC 33.2 RDW 14.0 Plt Count 152 MPV 9.4 Neut % (Auto) 92.3 H Lymph % (Auto) 5.4 L [place] % (Auto) 2.2 Eos % (Auto) 0.0 Baso % (Auto) 0.1 Neut # (Auto) 5.8 Lymph # (Auto) 0.3 L [place] # (Auto) 0.1 Eos # (Auto) 0.0 Baso # (Auto) 0.0 WBC Differential . Differential Comment Auto diff final PT INR APTT Sodium 140 Potassium 4.2 Chloride 105 Carbon Dioxide 31.4 Anion Gap 4 L BUN 7 Creatinine 0.78 Estimated GFR Greater than 89 Random Glucose 120 H Calcium 8.5 Total Bilirubin 0.3 AST 10 L ALT 17 Alkaline Phosphatase 110 Total Protein 6.6 Albumin 3.3 L - Imaging Impressions Foot X-Ray 12/22/17 00:00 CONCLUSION: 1 bony fragment remains at the fifth MTP surgical site. Foot X-Ray 12/22/17 15:00 CONCLUSION: 1. Comminuted fracture of the base of the fifth phalanx. - Procedures Date: 12/22/17 21:25 Initialization Date: 12/22/17 21:25 - Preoperative Diagnosis (1) Open fracture of fifth toe of left foot (2) Laceration of left foot with tendon involvement - Postoperative Diagnosis (1) Open fracture of fifth toe of left foot (2) Laceration of left foot with tendon involvement Date of procedure: 12/22/17 Procedure: 1. Irrigation and debridement of open fracture left 5th toe 2. Repair of tendon laceration left 5th toe 3. Repair of complex laceration involving tendon left foot Left foot laceration irrigated with 3L normal saline, followed by examination of wound. Severe comminution of base of 5th proximal phalanx with fragmentation and crumbled at level of joint. Bone 60% of bone came out with irrigation, so deemed necessary to remove remainder of base of proximal phalanx. Dorsal joint capsule and tendon repaired with 3-0 vicryl, followed by skin closure with 3-0 nylon. No gross debris noted. 2g Ancef IV preop No tourniquet utilized. Disposition: Clear for discharge from podiatry after 24 hours IV ancef. Please discharge patient on 7 days Keflex 500mg tid. Nonweightbearing left foot in splint. No further treatment planned. Keep dressing clean, dry, intact. Follow up in clinic 1 week for dressing change. Anesthesia: GETA, local (10mL 0.5% marcaine plain) Surgeon: Gemma Guillermo DPM Protection Agent: staff Estimated blood loss (mL): 20 Pathology: none sent Condition: stable Disposition: PACU Assessment and Plan - Plan Toe fracture The pt had a fire extinguisher fall on his left foot. Imaging: Comminuted fracture of the base of the fifth phalanx. -podiatry to take pt to OR this evening. -wound care and weightbearing per podiatry. -pain control with a bowel regimen. -PT in AM. Nicotine dependance The pt smokes two packs a day. -cessation instruction. -nicotine patch. Bipolar disorder/ Schizophrenia The pt is on multiple psych meds. -resume home regimen. -Ativan as needed. PPx: Mechanical contraindicated in setting of foot injury, hold chemical s/t surgery Code Status: FULL CODE Discussed Condition With: RN AND PT AND CM Discharge Planning: TO SNF TOMORROW ON PO KEFLEX
[2017-12-23] MEDS: ceFAZolin Inj 2,000 MG in Sodium Chlor 0.9% Inj 100 ML IV.SIG SCH ×2 (15:13→22:42)
--- NOTE | 2017-12-23 16:42 | P.PNPOD ---
Subjective Interval history: s/p left foot open fracture washout and tendon repair 12/22 with . Pt states he is feeling well and feels ready for d/c. Physical Exam Vital signs: Vital Signs 12/22/17 17:32 12/22/17 21:35 12/22/17 22:00 Temperature 98.3 F Pulse Rate 53 L 98 H 94 H Respiratory Rate 24 18 Blood Pressure 117/73 121/70 116/58 L Pulse Oximetry 95 95 12/22/17 22:15 12/22/17 22:30 12/22/17 23:12 Temperature 98.0 F 97.6 F Pulse Rate 86 79 76 Respiratory Rate 20 20 20 Blood Pressure 113/56 L 116/59 L 122/71 Pulse Oximetry 96 97 93 L 12/22/17 23:46 12/23/17 02:52 12/23/17 04:00 Temperature 97.2 F L Pulse Rate 63 Respiratory Rate 18 17 18 Blood Pressure 109/68 Pulse Oximetry 98 12/23/17 08:00 12/23/17 12:00 Temperature 97.3 F L 98 F Pulse Rate 57 L 54 L Respiratory Rate 16 17 Blood Pressure 111/58 L 112/69 Pulse Oximetry 97 97 Intake & Output 12/22/17 12/23/17 12/23/17 18:59 06:59 18:59 Intake Total 1050 / 1050 730 / 730 1000 / 1000 Output Total 560 / 560 Balance 1050 / 1050 170 / 170 1000 / 1000 Weight 67.132 kg Intake: IV 1050 / 1050 50 / 50 1000 / 1000 NS Inj 1,000 ML @ 100 mls/hr IV 1000 / 1000 1000 / 1000 .CONT .Q10H [facility] Rx#:[id number] Ancef 2 GM Premix Inj 2 gm In 50 / 50 50 / 50 50 ml @ 100 mls/hr IV.SIG ONCE ONE Rx#:[id number] Oral 480 / 480 Anesthesia Amount 200 / 200 Output: Urine 550 / 550 Estimated Blood Loss 10 / 10 Other: # Voids 2 Narrative: Left foot laceration site is well coapted with all sutures intact. Mild edema no erythema no drainage. Medications and Allergies Active Medications: Active Medications Acetaminophen (Tylenol) 650 mg PO Q4H PRN PRN Reason: Temp > 100.4 Aripiprazole (Abilify) 5 mg PO AC [facility] Last Admin: 12/23/17 12:10 Dose: 5 mg Benztropine Mesylate (Cogentin) 1 mg PO BID [facility] Last Admin: 12/23/17 09:44 Dose: 1 mg Buspirone HCl (Buspar) 30 mg PO TID [facility] Escitalopram Oxalate (Lexapro) 20 mg PO DAILY [facility] Last Admin: 12/23/17 09:44 Dose: 20 mg Folic Acid (Folic Acid) 1 mg PO DAILY [facility] Last Admin: 12/23/17 09:45 Dose: 1 mg Haloperidol (Haldol) 2 mg PO BID [facility] Last Admin: 12/23/17 09:44 Dose: 2 mg Hydroxyzine HCl (Atarax) 150 mg PO [facility] Last Admin: 12/22/17 23:24 Dose: 150 mg Sodium Chloride (Ns Inj) 1,000 mls @ 100 mls/hr IV.CONT .Q10H [facility] Last Admin: 12/23/17 16:31 Dose: Not Given Cefazolin Sodium 2,000 mg/ (Sodium Chloride) 120 mls @ 240 mls/hr IV.SIG Q8H [facility] Stop: 12/24/17 07:29 Last Infusion: 12/23/17 15:43 Dose: 0 mls/hr Lamotrigine (Lamictal) 150 mg PO BID [facility] Last Admin: 12/23/17 09:45 Dose: 150 mg Lorazepam (Ativan) 0.5 mg PO Q8H PRN PRN Reason: SEVERE ANXIETY OR AGITATION Miscellaneous Information ([facility] Nursing Information) 1 each OTHER UNSCH PRN PRN Reason: SEE LABEL COMMENTS Stop: 12/23/17 22:47 Nicotine (Habitrol 21 Mg Patch.24 Hr) 1 patch T-DERMAL Q24H [facility] Last Admin: 12/22/17 23:16 Dose: 1 patch Oxycodone/Acetaminophen (Percocet 5/325 Mg) 1 tab PO Q4H PRN PRN Reason: pain 3-10 Last Admin: 12/23/17 06:05 Dose: 1 tab Patch Removal (Remove Old Patch) 1 each T-DERMAL Q24H [facility] Last Admin: 12/22/17 23:16 Dose: Not Given Prazosin HCl (Minipress) 2 mg PO HS [facility] Last Admin: 12/22/17 23:24 Dose: 2 mg Senna/Docusate Sodium (Jessica-Colace) 1 tab PO BID [facility] Last Admin: 12/23/17 09:44 Dose: 1 tab Sodium Chloride (Ns Flush) 2 ml IV.FLUSH PRN PRN PRN Reason: FLUSH AFTER USING IV ACCESS Allergies Allergy/AdvReac Type Severity Reaction Status Date / Time Fish Containing Products Allergy Rash Verified 12/22/17 15:13 Home Medications Medication Instructions Recorded Confirmed Type aripiprazole 5 mg PO AC 12/22/17 12/22/17 History benztropine 1 mg PO BID 12/22/17 12/22/17 History buspirone 30 mg PO TID 12/22/17 12/22/17 History diclofenac sodium 75 mg PO BID PRN 12/22/17 12/22/17 History escitalopram oxalate 20 mg PO DAILY 12/22/17 12/22/17 History folic acid 1 mg PO DAILY 12/22/17 12/22/17 History haloperidol 2 mg PO BID 12/22/17 12/22/17 History hydroxyzine HCl 150 mg PO HS 12/22/17 12/22/17 History lamotrigine 150 mg PO BID 12/22/17 12/22/17 History oseltamivir 75 mg PO BID 12/22/17 12/22/17 History prazosin 2 mg PO HS 12/22/17 12/22/17 History Results - Labs CBC & Chem 7: 12/23/17 05:52 12/23/17 05:52 Laboratory Results - last 24 hr 12/22/17 12/22/17 12/23/17 16:15 16:15 05:52 WBC 6.3 RBC 4.75 Hgb 13.8 Hct 41.5 MCV 87.4 MCH 29.1 MCHC 33.2 RDW 14.0 Plt Count 152 MPV 9.4 Neut % (Auto) 92.3 H Lymph % (Auto) 5.4 L [place] % (Auto) 2.2 Eos % (Auto) 0.0 Baso % (Auto) 0.1 Neut # (Auto) 5.8 Lymph # (Auto) 0.3 L [place] # (Auto) 0.1 Eos # (Auto) 0.0 Baso # (Auto) 0.0 WBC Differential . Differential Comment Auto diff final PT 11.8 H INR 1.2 APTT 30.2 H Sodium 141 Potassium 4.2 Chloride 103 Carbon Dioxide 31.1 Anion Gap 7 BUN 7 Creatinine 0.85 Estimated GFR Greater than 89 Random Glucose 101 Calcium 9.1 Total Bilirubin AST ALT Alkaline Phosphatase Total Protein Albumin 12/23/17 05:52 WBC RBC Hgb Hct MCV MCH MCHC RDW Plt Count MPV Neut % (Auto) Lymph % (Auto) [place] % (Auto) Eos % (Auto) Baso % (Auto) Neut # (Auto) Lymph # (Auto) [place] # (Auto) Eos # (Auto) Baso # (Auto) WBC Differential Differential Comment PT INR APTT Sodium 140 Potassium 4.2 Chloride 105 Carbon Dioxide 31.4 Anion Gap 4 L BUN 7 Creatinine 0.78 Estimated GFR Greater than 89 Random Glucose 120 H Calcium 8.5 Total Bilirubin 0.3 AST 10 L ALT 17 Alkaline Phosphatase 110 Total Protein 6.6 Albumin 3.3 L - Imaging Impressions Foot X-Ray 12/22/17 00:00 CONCLUSION: 1 bony fragment remains at the fifth MTP surgical site. - Procedures Date: 12/22/17 21:25 Initialization Date: 12/22/17 21:25 - Preoperative Diagnosis (1) Open fracture of fifth toe of left foot (2) Laceration of left foot with tendon involvement - Postoperative Diagnosis (1) Open fracture of fifth toe of left foot (2) Laceration of left foot with tendon involvement Date of procedure: 12/22/17 Procedure: 1. Irrigation and debridement of open fracture left 5th toe 2. Repair of tendon laceration left 5th toe 3. Repair of complex laceration involving tendon left foot Left foot laceration irrigated with 3L normal saline, followed by examination of wound. Severe comminution of base of 5th proximal phalanx with fragmentation and crumbled at level of joint. Bone 60% of bone came out with irrigation, so deemed necessary to remove remainder of base of proximal phalanx. Dorsal joint capsule and tendon repaired with 3-0 vicryl, followed by skin closure with 3-0 nylon. No gross debris noted. 2g Ancef IV preop No tourniquet utilized. Disposition: Clear for discharge from podiatry after 24 hours IV ancef. Please discharge patient on 7 days Keflex 500mg tid. Nonweightbearing left foot in splint. No further treatment planned. Keep dressing clean, dry, intact. Follow up in clinic 1 week for dressing change. Anesthesia: GETA, local (10mL 0.5% marcaine plain) Surgeon: Gemma Guillermo DPM Equipment Tech: staff Estimated blood loss (mL): 20 Pathology: none sent Condition: stable Disposition: PACU Assessment and Plan - Assessment (1) Laceration of left foot with tendon involvement Code(s): S91.312A - Laceration without foreign body, left foot, initial encounter; S96.922A - Laceration of unspecified muscle and tendon at ankle and foot level, left foot, initial encounter Status: Acute (2) Open fracture of fifth toe of left foot Code(s): S92.502B - Displaced unspecified fracture of left lesser toe(s), initial encounter for open fracture Status: Acute - Plan -NWBing LLE -Ice and elevate -Keflex as previously discussed -Follow up with next week (2) Open fracture of fifth toe of left foot Qualifiers: Encounter type: initial encounter Qualified Code(s): S92.502B - Displaced unspecified fracture of left lesser toe(s), initial encounter for open fracture
[2017-12-24 05:58] LABS: Baso % (Auto) 0.3 % (0.0-2.0); Eos # (Auto) 0.1 th/mm3 (0.0-0.4); Hematocrit 40.2 % (39.0-51.0); Hemoglobin 13.4 gm/dL (13.0-17.0); Lymph # (Auto) 1.2 th/mm3 (1.0-4.8); Lymph % (Auto) 22.6 % (9.0-44.0); Mean Corpuscular HGB Conc 33.3 % (32.0-36.0); Mean Corpuscular Hemoglobin 29.2 pg (27.0-34.0); Mean Corpuscular Volume 87.9 fL (80.0-100.0); Mean Platelet Volume 9.4 fL (7.0-11.0); Mono # (Auto) 0.4 th/mm3 (0.0-0.9); Mono % (Auto) 7.1 % (0.0-8.0); Neut # (Auto) 3.8 th/mm3 (1.8-7.7); Platelet Count 134 th/mm3 (150-450); Red Blood Count 4.57 mil/mm3 (4.50-5.90); Red Cell Distribution Width 14.3 % (11.6-17.2); White Blood Count 5.5 th/mm3 (4.0-11.0)
[2017-12-24] MEDS: ceFAZolin Inj 2,000 MG in Sodium Chlor 0.9% Inj 100 ML IV.SIG SCH (06:01)
[2017-12-24] MEDS: Sod Chloride 0.9% Inj 1,000 ML IV.CONT SCH ×2 (06:03→12:11)
[2017-12-24 06:14] LABS: Albumin 3.1 g/dL (3.4-5.0); Anion Gap 5 meq/L (5-15); Aspartate Aminotransferase 15 U/L (15-37); Blood Urea Nitrogen 8 mg/dL (7-18); Calcium 8.4 mg/dL (8.5-10.1); Carbon Dioxide 32.1 meq/L (21.0-32.0); Chloride 104 meq/L (98-107); Glomerular Filtration Rate Greater Than 89 mL/min (>89); Glucose,Random 90 mg/dL (74-106); Magnesium 1.7 mg/dL (1.5-2.5); Sodium 141 meq/L (136-145)
[2017-12-24 06:15] LABS: Alanine Aminotransferase 15 U/L (12-78)
[2017-12-24 06:23] LABS: Alkaline Phosphatase 98 U/L (45-117); Free T4 (Free Thyroxine) 1.05 ng/dL (0.76-1.46); Thyroid Stimulating Hormone 0.985 uIU/mL (0.358-3.740); Total Protein 6.4 g/dL (6.4-8.2)
--- NOTE | 2017-12-24 08:09 | MP ---
cc: [facility]SSE[facility] DATE OF OPERATION: 12/22/2017 INDICATIONS: The patient initially had an injury that he sustained at his assisted living facility where a fire extinguisher fell onto his left lateral foot. He sustained a large laceration that appeared to have tendon within the wound bed and possible palpable bone. On x-ray, he was found to have a highly comminuted fracture of the base of the proximal phalanx of the left 5th toe. I discussed the risks, benefits, and potential complications with him and that he needed to undergo irrigation and debridement of open fracture of the left 5th toe with possible repair of tendon and also repair of his complex laceration involving the tendon to his left foot. After hearing risks, benefits, and potential complications, the patient agreed to move forward with surgery. DETAILS OF PROCEDURE: The patient was seen in preop holding by myself, nursing staff, and anesthesia, where the correct patient, side, and site were all confirmed to be correct on the left foot. He was then taken to the surgical suite in the supine position. The left foot was prepped and draped in normal sterile fashion. Following timeout as per facility protocol, attention was directed to the left foot where it was copiously irrigated using 3 liters of normal saline followed by examination of the wound. There was noted to be no gross debris within the wound; however, with irrigation, the comminuted base of the 5th proximal phalanx was so fragmented and crumbled at that level that over half of the bone to that small area was removed with irrigation since it was crushed so badly. The remainder of the base of the proximal phalanx, which consist of approximately 40% of irregular edged bone, was deemed to be necessary to be removed from that area at the joint. Viability did appear to be intact to the left 5th toe with brisk capillary refill time. No tourniquet was utilized. The laceration was approximately 5-6 cm spanning from the 5th metatarsal phalange joint laterally and plantarly across the top of the foot and over to the 5th and 4th digit base in the webspace area with visible bone to both the 5th toe and the 5th metatarsal head. After removal of bone, the capsule was repaired as well as the tendon using 3-0 Vicryl, followed by deep closure with 3-0 Vicryl and skin closure with 3-0 nylon for repair of this laceration. No gross debris was noted. The patient tolerated the procedure and anesthesia well without complications; and after dressing consisting of Xeroform, 4 x 4's, ABD, cast padding, and Joe was applied to the left foot, he was taken back to PACU with vital signs stable and vascular status intact to the remainder of the left foot and intact to the 5th digit as well. He will be nonweightbearing on the left foot and a short posterior splint was applied. He will follow up in a week for dressing change in clinic. I recommend he be discharged on 7 days of Keflex and stay in-house for at least 23 hours for 3 doses of IV Ancef 2 grams. SURGEON: Gemma Guillermo DPM. BAR GAUGER AND LUBRICATOR TENDER: Staff. PREOPERATIVE DIAGNOSES: 1. Open fracture of left 5th toe proximal phalanx highly comminuted and displaced. 2. Laceration of left foot with tendon involvement. POSTOPERATIVE DIAGNOSES: 1. Open fracture of left 5th toe proximal phalanx highly comminuted and displaced. 2. Laceration of left foot with tendon involvement. PROCEDURES: 1. Irrigation and debridement of open fracture, left foot. 2. Repair of tendon laceration, left 5th toe. 3. Repair of complex laceration involving tendon, left foot. PATHOLOGY: None. PROPHYLAXIS: Two grams Ancef IV preoperatively. ESTIMATED BLOOD LOSS: 20 mL. ANESTHESIA: General endotracheal anesthesia plus local consisting of 10 mL of 0.5% Marcaine plain. CONDITION: Stable to PACU. COMPLICATIONS: None. DISPOSITION: Stay in-house for 24 hours, getting IV antibiotics q.8 hours. Discharge on 7 days of Keflex and keep clean, dry, and intact with nonweightbearing to the left foot and splint. Follow up in clinic in 1 week for a dressing change. DOMONIQUE Flores/sunita , 05:14 AM , 05:24 AM
[2017-12-24 08:36] VITALS: RESP 18
[2017-12-24] MEDS: ARIPiprazole 5 MG Tablet PO SCH ×2 (08:42→12:10)
[2017-12-24] MEDS: Haloperidol 1 MG Tablet PO SCH (08:42)
[2017-12-24] MEDS: Senna/Docusate Sodium 8.6/50 MG Tablet PO SCH (08:42)
[2017-12-24] MEDS: Folic Acid 1 MG Tablet PO SCH (08:43)
[2017-12-24] MEDS: lamoTRIgine 100 MG Tablet PO SCH (08:43)
[2017-12-24 11:57] VITALS: BP 108/62; PULSE 60; TEMP 98.1; O2SAT 98
--- NOTE | 2017-12-24 12:18 | P.PNIM ---
Subjective Interval history: The patient is a 37-year-old male with a past medical history of cleft palate status post repair and bipolar disorder who is presenting to the hospital after a foot injury. The patient said that a fire extinguisher fell on his left foot. He had significant bleeding from the area and was brought to the hospital within 20 minutes. The patient stated that it hurt quite a bit at the time but since having numbing medication he is currently comfortable. He denies any other associated symptoms. He is aware that he will be having surgical repair later on. He is requesting anxiety medication. He says that he would like a nicotine patch. 12-23 sp surgery on 12-22 1. Irrigation and debridement of open fracture left 5th toe 2. Repair of tendon laceration left 5th toe 3. Repair of complex laceration involving tendon left foot CONTINUE IV ANTIBIOTICS DC TO [facility] TOMORROW WITH [facility] WILL GET AM [facility] RN AND PT AND RN [facility] RN AND PT 12-24 CLEARED BY PODIATRY DC TO HOME TODAY KEFLEX 500TID FOR 7DAYS Physical Exam Vital signs: Vital Signs 12/23/17 16:00 12/23/17 20:00 12/24/17 00:00 Temperature 98 F 97.4 F L 97.3 F L Pulse Rate 51 L 51 L 61 Respiratory Rate 17 16 16 Blood Pressure 117/59 L 131/72 122/60 Pulse Oximetry 93 L 98 100 12/24/17 00:55 12/24/17 04:00 12/24/17 08:00 Temperature 97.5 F L 98.6 F Pulse Rate 58 L 59 L Respiratory Rate 17 17 18 Blood Pressure 128/70 108/56 L Pulse Oximetry 100 97 12/24/17 11:57 Temperature 98.1 F Pulse Rate 60 Respiratory Rate 18 Blood Pressure 108/62 Pulse Oximetry 98 Intake & Output 12/23/17 12/24/17 12/24/17 18:59 06:59 18:59 Intake Total 2120 / 2120 1240 / 1240 Output Total 1200 / 1200 650 / 650 Balance 920 / 920 590 / 590 Weight 65 kg Intake: IV 1000 / 1000 1240 / 1240 NS Inj 1,000 ML @ 100 mls/hr IV 1000 / 1000 1000 / 1000 .CONT .Q10H [facility] Rx#:[id number] Ancef Inj 2,000 MG In NS Inj 240 / 240 100 ML @ 240 mls/hr IV.SIG Q8H [facility] Rx#:[id number] Oral 1120 / 1120 Output: Urine 1200 / 1200 650 / 650 Other: # Voids 1 2 # Bowel Movements 0 Narrative: GENERAL: Well-developed, well-nourished in no apparent distress. HEAD: Normocephalic, atraumatic. EYES: Pupils equal round and reactive. Extraocular motions intact. No scleral icterus. No injection or drainage. ENT: Nose clear. Throat without erythema, tonsillar hypertrophy or exudate. Uvula midline. Airway patent. NECK: Trachea midline. Supple, nontender, moves head freely. No central bony tenderness or spasm. CARDIOVASCULAR: Regular rate and rhythm without murmurs, gallops, or rubs. RESPIRATORY: Mild wheezing. GASTROINTESTINAL: Abdomen soft, non-tender, nondistended. No hepato-splenomegaly , or palpable masses. No guarding. EXTREMITIES: No clubbing, cyanosis, or edema. Patient has a large laceration over the dorsum of the left foot across the lateral forefoot down into the fourth toe. Patient has a open fracture/open joint laceration through the extensor tendon of the little toe. Patient is able to flex his toe but unable to extend. Patient has decreased sensation in the little toe. Patient does have intact cap refill.--LEFT FOOT IS NOW DRESSED POST SURGERY BACK: Nontender without deformity. No flank tenderness. NEUROLOGICAL: Awake, alert and oriented x 3 .Cranial nerves grossly intact. Motor and sensory grossly within normal limits. Normal speech. Results - Labs CBC & Chem 7: 12/24/17 04:55 12/24/17 04:55 Laboratory Results - last 24 hr 12/24/17 12/24/17 04:55 04:55 WBC 5.5 RBC 4.57 Hgb 13.4 Hct 40.2 MCV 87.9 MCH 29.2 MCHC 33.3 RDW 14.3 Plt Count 134 L MPV 9.4 Neut % (Auto) 69.0 Lymph % (Auto) 22.6 [place] % (Auto) 7.1 Eos % (Auto) 1.0 Baso % (Auto) 0.3 Neut # (Auto) 3.8 Lymph # (Auto) 1.2 [place] # (Auto) 0.4 Eos # (Auto) 0.1 Baso # (Auto) 0.0 WBC Differential . Differential Comment Auto diff final Sodium 141 Potassium 4.0 Chloride 104 Carbon Dioxide 32.1 H Anion Gap 5 BUN 8 Creatinine 0.70 Estimated GFR Greater than 89 Random Glucose 90 Calcium 8.4 L Phosphorus 3.0 Magnesium 1.7 Total Bilirubin 0.2 AST 15 ALT 15 Alkaline Phosphatase 98 Total Protein 6.4 Albumin 3.1 L TSH 0.985 Free T4 1.05 - Imaging ITS Impressions Foot X-Ray 12/22/17 15:00 CONCLUSION: 1. Comminuted fracture of the base of the fifth phalanx. - Procedures Date: 12/22/17 21:25 Initialization Date: 12/22/17 21:25 - Preoperative Diagnosis (1) Open fracture of fifth toe of left foot (2) Laceration of left foot with tendon involvement - Postoperative Diagnosis (1) Open fracture of fifth toe of left foot (2) Laceration of left foot with tendon involvement Date of procedure: 12/22/17 Procedure: 1. Irrigation and debridement of open fracture left 5th toe 2. Repair of tendon laceration left 5th toe 3. Repair of complex laceration involving tendon left foot Left foot laceration irrigated with 3L normal saline, followed by examination of wound. Severe comminution of base of 5th proximal phalanx with fragmentation and crumbled at level of joint. Bone 60% of bone came out with irrigation, so deemed necessary to remove remainder of base of proximal phalanx. Dorsal joint capsule and tendon repaired with 3-0 vicryl, followed by skin closure with 3-0 nylon. No gross debris noted. 2g Ancef IV preop No tourniquet utilized. Disposition: Clear for discharge from podiatry after 24 hours IV ancef. Please discharge patient on 7 days Keflex 500mg tid. Nonweightbearing left foot in splint. No further treatment planned. Keep dressing clean, dry, intact. Follow up in clinic 1 week for dressing change. Anesthesia: GETA, local (10mL 0.5% marcaine plain) Surgeon: Gemma Guillermo DPM Sap Ppm Consultant: staff Estimated blood loss (mL): 20 Pathology: none sent Condition: stable Disposition: PACU Assessment and Plan - Plan Toe fracture The pt had a fire extinguisher fall on his left foot. Imaging: Comminuted fracture of the base of the fifth phalanx. -podiatry to take pt to OR this evening. -wound care and weightbearing per podiatry. -pain control with a bowel regimen. -PT in AM. Nicotine dependance The pt smokes two packs a day. -cessation instruction. -nicotine patch. Bipolar disorder/ Schizophrenia The pt is on multiple psych meds. -resume home regimen. -Ativan as needed. PPx: Mechanical contraindicated in setting of foot injury, hold chemical s/t surgery DC TO HOME TODAY KEFLEX 500MG TID FOR 7DAYS Code Status: FULL CODE Discussed Condition With: RN AND PT AND CM Discharge Planning: TO [facility] TODAY ON PO KEFLEX
--- NOTE | 2017-12-24 12:51 | P.DS ---
Date of admission: 12/22/17 16:44 Primary care physician: UNKNOWN Attending physician on discharge: Monster Barger Anticipated date of discharge: 12/24/17 Brief History from admission: The patient is a 37-year-old male with a past medical history of cleft palate status post repair and bipolar disorder who is presenting to the hospital after a foot injury. The patient said that a fire extinguisher fell on his left foot. He had significant bleeding from the area and was brought to the hospital within 20 minutes. The patient stated that it hurt quite a bit at the time but since having numbing medication he is currently comfortable. He denies any other associated symptoms. He is aware that he will be having surgical repair later on. He is requesting anxiety medication. He says that he would like a nicotine patch. Patient update on day of discharge: The patient is a 37-year-old male with a past medical history of cleft palate status post repair and bipolar disorder who is presenting to the hospital after a foot injury. The patient said that a fire extinguisher fell on his left foot. He had significant bleeding from the area and was brought to the hospital within 20 minutes. The patient stated that it hurt quite a bit at the time but since having numbing medication he is currently comfortable. He denies any other associated symptoms. He is aware that he will be having surgical repair later on. He is requesting anxiety medication. He says that he would like a nicotine patch. 12-23 sp surgery on 12-22 1. Irrigation and debridement of open fracture left 5th toe 2. Repair of tendon laceration left 5th toe 3. Repair of complex laceration involving tendon left foot CONTINUE IV ANTIBIOTICS DC TO [facility] TOMORROW WITH WALKER WILL GET AM LABS DW RN AND PT AND RN AM LABS [facility]YNA RN AND PT 12-24 CLEARED BY PODIATRY DC TO HOME TODAY KEFLEX 500TID FOR 7DAYS DS: Diagnosis - Discharge Diagnosis (1) Laceration of left foot with tendon involvement Status: Acute (2) Open fracture of fifth toe of left foot Status: Acute DS: Medications - Discharge Medications Prescriptions: aripiprazole 5 mg PO AC #90 tab benztropine 1 mg PO BID #60 tab buspirone 30 mg PO TID #90 tab cephalexin [Keflex] 500 mg PO TID #21 cap diclofenac sodium 75 mg PO BID PRN #60 tab PRN Reason: Pain escitalopram oxalate 20 mg PO DAILY #30 tab folic acid 1 mg PO DAILY #30 tab haloperidol 2 mg PO BID #60 tab hydroxyzine HCl 150 mg PO HS #90 tab lamotrigine 150 mg PO BID #60 tab nicotine 1 patch TRANSDERMAL Q24H #30 ea oxycodone-acetaminophen 1 tab PO Q4H PRN #18 tab PRN Reason: pain 3-10 prazosin 2 mg PO HS #30 cap sennosides-docusate sodium [Senna Plus] 1 tab PO BID #60 tab DS: Summary Hospital Course: The patient is a 37-year-old male with a past medical history of cleft palate status post repair and bipolar disorder who is presenting to the hospital after a foot injury. The patient said that a fire extinguisher fell on his left foot. He had significant bleeding from the area and was brought to the hospital within 20 minutes. The patient stated that it hurt quite a bit at the time but since having numbing medication he is currently comfortable. He denies any other associated symptoms. He is aware that he will be having surgical repair later on. He is requesting anxiety medication. He says that he would like a nicotine patch. 12-23 sp surgery on 12-22 1. Irrigation and debridement of open fracture left 5th toe 2. Repair of tendon laceration left 5th toe 3. Repair of complex laceration involving tendon left foot CONTINUE IV ANTIBIOTICS DC TO [facility] TOMORROW WITH WALKER WILL GET AM LABS DW RN AND PT AND RN AM LABS DW RN AND PT 12-24 CLEARED BY PODIATRY DC TO HOME TODAY KEFLEX 500TID FOR 7DAYS E-FORCSE Prescription Drug Monitoring Database has been queried and verified prior to prescribing the controlled substance. Acute pain exception. This patient has normal, predicted, physiological, and time limited response to an adverse mechanical stimulus associated with surgery, trauma, or acute illness as described in my notes. There is a lack of alternative treatment options other than to include the prescribed narcotic treatment for this condition. patient has no rx in E=FORCSE - Time Spent with Patient Total time spent providing and/or coordinating discharge services: Greater than 30 minutes - Quality: VTE Deep Vein Thrombosis/Pulmonary Embolism Present on Admission: No Exam Vital signs: Vital Signs 12/23/17 16:00 12/23/17 20:00 12/24/17 00:00 Temperature 98 F 97.4 F L 97.3 F L Pulse Rate 51 L 51 L 61 Respiratory Rate 17 16 16 Blood Pressure 117/59 L 131/72 122/60 Pulse Oximetry 93 L 98 100 12/24/17 00:55 12/24/17 04:00 12/24/17 08:00 Temperature 97.5 F L 98.6 F Pulse Rate 58 L 59 L Respiratory Rate 17 17 18 Blood Pressure 128/70 108/56 L Pulse Oximetry 100 97 12/24/17 11:57 Temperature 98.1 F Pulse Rate 60 Respiratory Rate 18 Blood Pressure 108/62 Pulse Oximetry 98 Intake & Output 12/23/17 12/24/17 12/24/17 18:59 06:59 18:59 Intake Total 2120 / 2120 1240 / 1240 Output Total 1200 / 1200 650 / 650 Balance 920 / 920 590 / 590 Weight 65 kg Intake: IV 1000 / 1000 1240 / 1240 NS Inj 1,000 ML @ 100 mls/hr IV 1000 / 1000 1000 / 1000 .CONT .Q10H SHARAD Rx#:[id number] Ancef Inj 2,000 MG In NS Inj 240 / 240 100 ML @ 240 mls/hr IV.SIG Q8H SHARAD Rx#:[id number] Oral 1120 / 1120 Output: Urine 1200 / 1200 650 / 650 Other: # Voids 1 2 # Bowel Movements 0 Narrative: GENERAL: Well-developed, well-nourished in no apparent distress. HEAD: Normocephalic, atraumatic. EYES: Pupils equal round and reactive. Extraocular motions intact. No scleral icterus. No injection or drainage. ENT: Nose clear. Throat without erythema, tonsillar hypertrophy or exudate. Uvula midline. Airway patent. NECK: Trachea midline. Supple, nontender, moves head freely. No central bony tenderness or spasm. CARDIOVASCULAR: Regular rate and rhythm without murmurs, gallops, or rubs. RESPIRATORY: Mild wheezing. GASTROINTESTINAL: Abdomen soft, non-tender, nondistended. No hepato-splenomegaly , or palpable masses. No guarding. EXTREMITIES: No clubbing, cyanosis, or edema. Patient has a large laceration over the dorsum of the left foot across the lateral forefoot down into the fourth toe. Patient has a open fracture/open joint laceration through the extensor tendon of the little toe. Patient is able to flex his toe but unable to extend. Patient has decreased sensation in the little toe. Patient does have intact cap refill.--LEFT FOOT IS NOW DRESSED POST SURGERY BACK: Nontender without deformity. No flank tenderness. NEUROLOGICAL: Awake, alert and oriented x 3 .Cranial nerves grossly intact. Motor and sensory grossly within normal limits. Normal speech. Results Procedures completed during hospitalization: Date: 12/22/17 21:25 Initialization Date: 12/22/17 21:25 - Preoperative Diagnosis (1) Open fracture of fifth toe of left foot (2) Laceration of left foot with tendon involvement - Postoperative Diagnosis (1) Open fracture of fifth toe of left foot (2) Laceration of left foot with tendon involvement Date of procedure: 12/22/17 Procedure: 1. Irrigation and debridement of open fracture left 5th toe 2. Repair of tendon laceration left 5th toe 3. Repair of complex laceration involving tendon left foot Left foot laceration irrigated with 3L normal saline, followed by examination of wound. Severe comminution of base of 5th proximal phalanx with fragmentation and crumbled at level of joint. Bone 60% of bone came out with irrigation, so deemed necessary to remove remainder of base of proximal phalanx. Dorsal joint capsule and tendon repaired with 3-0 vicryl, followed by skin closure with 3-0 nylon. No gross debris noted. 2g Ancef IV preop No tourniquet utilized. Disposition: Clear for discharge from podiatry after 24 hours IV ancef. Please discharge patient on 7 days Keflex 500mg tid. Nonweightbearing left foot in splint. No further treatment planned. Keep dressing clean, dry, intact. Follow up in clinic 1 week for dressing change. Anesthesia: GETA, local (10mL 0.5% marcaine plain) Surgeon: Gemma Guillermo DPM Print Finishing Worker: staff Estimated blood loss (mL): 20 Pathology: none sent Condition: stable Disposition: PACU Completed studies during hospitalization: Laboratory Results WBC 5.5 th/mm3 (4.0-11.0) 12/24/17 04:55 RBC 4.57 mil/mm3 (4.50-5.90) 12/24/17 04:55 Hgb 13.4 gm/dL (13.0-17.0) 12/24/17 04:55 Hct 40.2 % (39.0-51.0) 12/24/17 04:55 MCV 87.9 fL (80.0-100.0) 12/24/17 04:55 MCH 29.2 pg (27.0-34.0) 12/24/17 04:55 MCHC 33.3 % (32.0-36.0) 12/24/17 04:55 RDW 14.3 % (11.6-17.2) 12/24/17 04:55 Plt Count 134 th/mm3 (150-450) L 12/24/17 04:55 MPV 9.4 fL (7.0-11.0) 12/24/17 04:55 Neut % (Auto) 69.0 % (16.0-70.0) 12/24/17 04:55 Lymph % (Auto) 22.6 % (9.0-44.0) 12/24/17 04:55 Russell % (Auto) 7.1 % (0.0-8.0) 12/24/17 04:55 Eos % (Auto) 1.0 % (0.0-4.0) 12/24/17 04:55 Baso % (Auto) 0.3 % (0.0-2.0) 12/24/17 04:55 Neut # (Auto) 3.8 th/mm3 (1.8-7.7) 12/24/17 04:55 Lymph # (Auto) 1.2 th/mm3 (1.0-4.8) 12/24/17 04:55 Russell # (Auto) 0.4 th/mm3 (0.0-0.9) 12/24/17 04:55 Eos # (Auto) 0.1 th/mm3 (0.0-0.4) 12/24/17 04:55 Baso # (Auto) 0.0 th/mm3 (0.0-0.2) 12/24/17 04:55 WBC Differential . 12/24/17 04:55 Differential Comment Auto diff final 12/24/17 04:55 PT 11.8 sec (9.8-11.6) H 12/22/17 16:15 INR 1.2 Ratio 12/22/17 16:15 APTT 30.2 sec (24.3-30.1) H 12/22/17 16:15 Sodium 141 meq/L (136-145) 12/24/17 04:55 Potassium 4.0 meq/L (3.5-5.1) 12/24/17 04:55 Chloride 104 meq/L (98-107) 12/24/17 04:55 Carbon Dioxide 32.1 meq/L (21.0-32.0) H 12/24/17 04:55 Anion Gap 5 meq/L (5-15) 12/24/17 04:55 BUN 8 mg/dL (7-18) 12/24/17 04:55 Creatinine 0.70 mg/dL (0.60-1.30) 12/24/17 04:55 Estimated GFR Greater than 89 mL/min (>89) 12/24/17 04:55 Random Glucose 90 mg/dL (74-106) 12/24/17 04:55 Calcium 8.4 mg/dL (8.5-10.1) L 12/24/17 04:55 Phosphorus 3.0 mg/dL (2.5-4.9) 12/24/17 04:55 Magnesium 1.7 mg/dL (1.5-2.5) 12/24/17 04:55 Total Bilirubin 0.2 mg/dL (0.2-1.0) 12/24/17 04:55 AST 15 U/L (15-37) 12/24/17 04:55 ALT 15 U/L (12-78) 12/24/17 04:55 Alkaline Phosphatase 98 U/L (45-117) 12/24/17 04:55 Total Protein 6.4 g/dL (6.4-8.2) 12/24/17 04:55 Albumin 3.1 g/dL (3.4-5.0) L 12/24/17 04:55 TSH 0.985 uIU/mL (0.358-3.740) 12/24/17 04:55 Free T4 1.05 ng/dL (0.76-1.46) 12/24/17 04:55 Impressions Foot X-Ray 12/22/17 15:00 CONCLUSION: 1. Comminuted fracture of the base of the fifth phalanx. Labs on day of discharge: Labs from last 24 hours 12/24/17 12/24/17 12/24/17 04:55 04:55 04:55 WBC 5.5 RBC 4.57 Hgb 13.4 Hct 40.2 MCV 87.9 MCH 29.2 MCHC 33.3 RDW 14.3 Plt Count 134 L MPV 9.4 Neut % (Auto) 69.0 Lymph % (Auto) 22.6 Russell % (Auto) 7.1 Eos % (Auto) 1.0 Baso % (Auto) 0.3 Neut # (Auto) 3.8 Lymph # (Auto) 1.2 Russell # (Auto) 0.4 Eos # (Auto) 0.1 Baso # (Auto) 0.0 WBC Differential . Differential Comment Auto diff final Sodium 141 Potassium 4.0 Chloride 104 Carbon Dioxide 32.1 H Anion Gap 5 BUN 8 Creatinine 0.70 Estimated GFR Greater than 89 Random Glucose 90 Hemoglobin A1c Pending Calcium 8.4 L Phosphorus 3.0 Magnesium 1.7 Total Bilirubin 0.2 AST 15 ALT 15 Alkaline Phosphatase 98 Total Protein 6.4 Albumin 3.1 L TSH 0.985 Free T4 1.05 - Impressions ITS Impressions Foot X-Ray 12/22/17 15:00 CONCLUSION: 1. Comminuted fracture of the base of the fifth phalanx. Discharge Plan - Discharge Disposition Patient Disposition: 04 ACLF/DWIGHT - Discharge Condition Condition: Stable - Discharge Order Discharge Orders: Discharge Order (Routine); Ordered 12/24/17 Ordered By: Monster Barger - Discharge Details Anticipated Discharge Date: 12/24/17 Discharge Comment: DC TO HOME - Physicians Team Primary Care Provider: UNKNOWN, Attending Provider: Monster Barger Other Providers: Dyan Richards, DOMONIQUE
[2017-12-24 17:31] LABS: Hemoglobin A1c 5.5 % (4.3-6.0)
== END 2017-12-24 15:49 ==
LOC: NEDA 14:02 → NEPD 14:02 → NEPHCDU 18:30 → N06 19:40
PROVIDERS: ADMIT Hospitalist; ATTEND Hospitalist